=== PATIENT | male | born 1980 | race African-American/Black ===

== ENCOUNTER 2016-05-17 22:39 | Observation (INO) | payer BC ==
--- NOTE | ~2016-05-17 | HP ---
History And Physical [place] [id number] [facility] [place]. [address] NAME: COOPER SEPULVEDA : 76 STATUS : DIS IN PAT#: [id number] AGE: 35 ADM/REG DATE : 05/17/16 MR#: [id number] REPORT SERV DATE: 05/20/16 DICTATED BY: MELVIN MARTIN II DATE: 05/20/16 REPORT STATUS : Draft TRANSCRIBED BY: ANTWAN DATE: 05/20/16 DATE OF ADMISSION: 05/17/2016 CHIEF COMPLAINT: Severe left buttock and leg pain. HISTORY OF PRESENT ILLNESS: A friendly 35-year-old gentleman who reports severe pain in the back, radiating in the left buttock and thigh, consistent with radiculopathy. He reports the pain started after lifting weights and working out. He tried working one day, but then the pain simply became too severe and he is unable to work. The back pain is improving some, but the leg pain is worsening. He reports there is numbness and tingling as well. He denies any significant back pain history. 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 PAST MEDICAL HISTORY: Unremarkable. He does have tattooing on the skin history. He is employed where they do lift repetitively 50-75 pounds, he reports. REVIEW OF SYSTEMS: Noncontributory. MEDICATIONS: Please see the MAR. PHYSICAL EXAMINATION: GENERAL: Reveals a gentleman in moderate distress. He is awake, alert, and oriented. He is very uncomfortable sitting, he would prefer to stand. CHEST: Reveals no stridor on inspiration or expiration. CARDIOVASCULAR: Slight tachycardia when I palpate the radial pulse. ABDOMEN: Soft. The patient does have a positive straight leg raise. He does have very minimal tenderness to touch in the back. He does have tattoos. There are no lumbar scars, however. PSYCHIATRIC: Reveals a gentleman who is not agitated nor confused. He is appropriate with the exam in our discussion. IMAGING: MRI shows L4-5 moderate amount of degeneration. The rest of the disks look fairly reasonable. There does appear to be a herniation at L4-5 in the lateral recess with some foraminal extension MEDICAL DECISION MAKING: A 35-year-old gentleman with L4-5 degenerative disk disease, but fortunately, no significant back pain history. His pain now is consistent more with HNP and radiculopathy. We discussed the admission for IV pain medicine and IV steroid. We discussed if this did not improve, then we could consider surgery or an epidural steroid injection. He overall along with his are very insistent that we do something quickly, so he can get back to work. He does not feel like he can currently work, and with him having to lift 50-75 pounds, I do not think he will likely be able to work in the next four to six weeks unless his pain miraculously improves. Given the amount of pain he is having now and the History And Physical [address] [place]. [id number] NAME: COOPER SEPULVEDA : 76 STATUS : DIS IN PAT#: [id number] AGE: 35 ADM/REG DATE : 05/17/16 MR#: [id number] REPORT SERV DATE: 05/20/16 DICTATED BY: MELVIN MARTIN II DATE: 05/20/16 REPORT STATUS : Draft TRANSCRIBED BY: MODL DATE: 05/20/16 MRI appearance, I doubt he will be able to work any time very quickly. Again, he and his are very interested in having surgery done if I think it would help the leg pain. I discussed with him the fact that surgery usually has a very good success rates for leg pain, but not a good track record for back pain only. Given his lack of back pain history, I again suspect strongly this is more a situation where the disk herniation is the primary culprit causing his leg pain and simply not chemical extravasation from a degenerative disk. I feel that surgery is reasonable if the IV steroid does not calm him down. ERICA/ANTWAN Melvin Martin II, M.D. / [id number]
--- NOTE | ~2016-05-17 | OP ---
Record Of Operation [facility] [address] [place]. [address] NAME: COOPER SEPULVEDA : 76 STATUS : DIS IN PAT#: [id number] AGE: 35 ADM/REG DATE : 05/17/16 MR#: [id number] REPORT SERV DATE: 05/20/16 DICTATED BY: MELVIN CORRALES II DATE: 05/20/16 REPORT STATUS : Draft TRANSCRIBED BY: MODJanelle DATE: 05/20/16 DATE OF PROCEDURE: 05/18/2016 PREOPERATIVE DIAGNOSES: 1. Left lower extremity radiculopathy. 2. Herniated nucleus pulposus, L4-5. 3. Moderate degenerative disk disease, L4-5. POSTOPERATIVE DIAGNOSES: 1. Left lower extremity radiculopathy. 2. Herniated nucleus pulposus, L4-5. 3. Moderate degenerative disk disease, L4-5. PROCEDURES PERFORMED: 1. Left L4-5 microdiskectomy. 2. Use of the microscope and stereotactic spinal imaging. SURGEON: Melvin Corrales M.D. FLUIDS: 1100 mL LR. ESTIMATED BLOOD LOSS: 15 mL. DRAINS: None. COMPLICATIONS: None. ANTIBIOTIC: Preoperatively. PREOPERATIVE HISTORY: This is a friendly 35-year-old gentleman, admitted for pain control and IV steroids. His leg pain has still been very persistent. We discussed the pros and cons of the surgery. He and his were very interested in surgery. I offered them continued nonoperative care and the fact that he may very well likely improve in the next 4- 6 weeks. They said, however, they did not want to wait 2, 3, or 4 weeks potentially and not be well enough, and then still have to have the surgery. I understood their rationale and thought there was some merit to it in terms of getting back to work as quickly as possible. I did not feel based upon what he currently required to do at work, that he would likely be able to work in the next few weeks regardless. With surgery, I discussed with them that he likely would be out for 6 weeks because of his repetitive lifting requirement at work. I advised him that I would prefer him not to lift more than 25 pounds in the first 6 weeks. Again, we discussed the risks and the benefits of continuing nonoperative care versus an epidural steroid injection versus the surgery, and he and his want him to proceed with surgery as soon as possible given his situation and pain and inability to work. DESCRIPTION OF PROCEDURE: After informed consent was obtained, the patient was brought to the operating room at his request and general anesthesia achieved. He was placed in prone Record Of Operation [address] [id number] NAME: COOPER SEPULVEDA : 76 STATUS : DIS IN PAT#: [id number] AGE: 35 ADM/REG DATE : 05/17/16 MR#: [id number] REPORT SERV DATE: 05/20/16 DICTATED BY: MELVIN CORRALES II DATE: 05/20/16 REPORT STATUS : Draft TRANSCRIBED BY: ANTWAN DATE: 05/20/16 position and the back was prepped and draped in a sterile fashion. The iliac crest on the right was used for placement of the stereotactic spinal pin. The intraoperative CT scan was completed and the stereotactic guidance used throughout the case. The minimally invasive incision was made and the 20 mm tubular retractor placed. We were able to use the microscope now for excellent visualization and illumination. The laminotomy was now performed with the high-speed bur and the Kerrison rongeurs and the curettes. The ligamentum flavum was identified and partially removed, and the L5 nerve root identified. There was moderate edema about the nerve root. There was a large annular disk protrusion, which had become severely compressing the L5 nerve root against the facet joint. Portions of the facet were removed and now the L5 nerve root better decompressed. At this point, I did not feel that a surgical annulotomy was required, and overall would place him at a high risk for a disk herniation recurrence. The area was now irrigated followed by confirmation of hemostasis. The patient was then extubated and transferred to PACU in stable condition. ERICA/ANTWAN Melvin Corrales II, M.D. / [id number] CC: Danielle Davidson II, Cynthia Fernandez
[2016-05-17 23:40] LABS: BASOPHILS 0.4 %; BASOPHILS ABSOLUTE 0.03 10/3/uL (0.0-0.16); EOSINOPHILS 2.8 %; EOSINOPHILS ABSOLUTE 0.21 10/3/uL (0.0-0.53); HEMATOCRIT 38.2 % (40.0-51.0); HEMOGLOBIN 12.8 g/dL (13.6-17.8); IMMATURE GRANULOCYTES 0.1 %; IMMATURE GRANULOCYTES ABSOLUTE 0.01 10/3/uL (0.0-0.11); LYMPHOCYTES 36.1 %; LYMPHOCYTES ABSOLUTE 2.68 10/3/uL (0.67-4.30); MEAN CORPUS HGB CONC 33.5 g/dL (32.0-36.0); MEAN CORPUSCULAR HEMOGLOB 29.8 pg (26.0-34.0); MEAN CORPUSCULAR VOLUME 88.8 fL (80-100); MEAN PLATELET VOLUME 9.9 fL (9.2-13.0); MONOCYTES 5.9 %; MONOCYTES ABSOLUTE 0.44 10/3/uL (0.21-1.20); NEUTROPHILS 54.7 %; NEUTROPHILS ABSOLUTE 4.05 10/3/uL (2.02-8.40); PLATELET COUNT 201 10/3/uL (150-400); WHITE BLOOD CELLS 7.4 10/3/uL (4.5-10.5)
[2016-05-17 23:41] LABS: MANUAL DIFF NO %
[2016-05-17 23:54] LABS: A/G RATIO 1.1 (0.7-1.9); ALBUMIN 3.4 G/DL (3.5-5.0); ALKALINE PHOSPHATASE 54 U/L (45-117); BUN (BLOOD UREA NITROGEN) 14 MG/DL (6-23); CALCIUM, SERUM 8.1 MG/DL (8.5-10.4); CHLORIDE, SERUM 110 MMOL/L (96-112); CO2 (CARBON DIOXIDE) 30 MMOL/L (24-34); CREATININE 0.87 MG/DL (0.70-1.30); GFR AFRICAN AMERICAN 128 ML/MIN (>=60); GFR NON AFRICAN AMERICAN 110 ML/MIN (>=60); GLUCOSE, SERUM 77 MG/DL (60-99); POTASSIUM, SERUM 3.6 MMOL/L (3.5-5.3); SGOT(AST) 12 U/L (5-40); SGPT(ALT) 38 U/L (5-65); SODIUM, SERUM 145 MMOL/L (135-148); TOTAL BILIRUBIN 0.2 MG/DL (0-1.2); TOTAL PROTEIN 6.4 G/DL (6.0-8.5)
[2016-05-18] MEDS ORDERED: IBU800 PO (06:26)
== END 2016-05-18 20:39 | disposition home or self-care (01) ==
LOC: CDU1 22:39 → CDU2 22:46 → SDC/OF 05-18 12:44
PROVIDERS: Orthopaedic Surgery
PROC: 01NB0ZZ Release Lumbar Nerve, Open Approach (ICD-10-PCS; 2016-05-18)
PROC: 0SB20ZZ Excision of Lumbar Vertebral Disc, Open Approach (ICD-10-PCS; principal; 2016-05-18 16:15)
DX: M51.16 Intervertebral disc disorders with radiculopathy, lumbar region (principal); F17.210 Nicotine dependence, cigarettes, uncomplicated; Z79.1 Long term (current) use of non-steroidal anti-inflammatories (NSAID); Z98.890 Other specified postprocedural states
CPT/HCPCS: 72148; 80053; 85025; 88304; 88311; 96374; 96375; A9270-GY; G0378; J0690; J1030; J1170; J1885; J2250; J2270; J2405; J2710; J3010